=== PATIENT | male | born 1970 | race Caucasian/White ===

== ENCOUNTER → 2017-09-18 | Outpatient (CLI) | payer OTHER ==
[~2017-09-18] MED LIST: CLIN-80 PO; EPIN0.3P2 IM; GADOBUTROL 10 MMOL/10 ML (GADAVIST) VIAL IV ONE; OXYC-12 PO
--- NOTE | 2017-09-18 11:48 | Diagnostic Imaging Report ---
PROCEDURE: MR imaging of the brain with and without contrast. TECHNIQUE: Multiplanar, multisequence MR imaging of the brain was performed with and without contrast. INDICATION: Headaches and short-term memory loss. FINDINGS: Ventricular size and sulcal pattern are normal. There is some slightly prominent CSF density along the frontal convexities bilaterally, suggestive of mild frontal lobe atrophy. No diffusion restriction is identified to suggest acute ischemia. The normal expected flow-voids within the carotid siphons are seen. No acute intra-axial or extra-axial hemorrhage is detected. No abnormal enhancement is seen following contrast administration. The corpus callosum is unremarkable. The sella and parasellar structures are unremarkable. IMPRESSION: Findings suggestive of mild frontal lobe atrophy bilaterally. The study is otherwise unremarkable. No acute features detected. Dictated by: Dictated on workstation # [id number]
== END ==
LOC: RAD 10:05
PROVIDERS: ATTEND Nurse Practitioner Family
DX: R41.3 Other amnesia (principal); R51 Headache
CPT/HCPCS: 70553

== ENCOUNTER → 2018-09-28 | Outpatient (CLI) | payer OTHER ==
[~2018-09-28] MED LIST changes: -GADOBUTROL 10 MMOL/10 ML (GADAVIST) VIAL IV ONE
--- NOTE | 2018-09-28 15:03 | Diagnostic Imaging Report ---
PROCEDURE: CT right upper extremity without contrast. TECHNIQUE: Multiple contiguous axial images were obtained through the right upper extremity without the use of intravenous contrast. Sagittal and coronal reformations were then performed. Auto Exposure Controls were utilized during the CT exam to meet ALARA standards for radiation dose reduction. INDICATION: Fall in March 2018 with pain and swelling of the right posterior hand and upper wrist. COMPARISON: None. FINDINGS: There is prominence and mild deformity at the dorsal aspect of the second and third carpometacarpal joints, which may be due to degenerative change or remote trauma. No acute fracture is seen in the right hand. Alignment appears normal. No muscular atrophy is seen. There is no fluid collection or mass seen. There is mild soft tissue edema at the dorsal aspect of the carpus with fluid in the fourth extensor compartment tendon sheath. IMPRESSION: 1. Protuberance at the dorsal aspect of the second and third carpometacarpal joints, may be from degenerative change or remote trauma. No acute fracture is seen. 2. Mild dorsal soft tissue edema with tenosynovitis of the fourth extensor compartment. Dictated by: Dictated on workstation # [id number]
== END ==
LOC: RAD 13:34
PROVIDERS: ATTEND Nurse Practitioner
DX: S60.221S Contusion of right hand, sequela (principal); M65.841 Other synovitis and tenosynovitis, right hand; M25.431 Effusion, right wrist
CPT/HCPCS: 73200

== ENCOUNTER 2023-01-22 05:50 | Outpatient (CLI) | payer OTHER ==
[~2023-01-22] VITALS: Ht 182.9 cm; Wt 121.4 kg
[2023-01-22] MEDS ORDERED: OMEG100032 PO (11:25)
[2023-01-22] MEDS ORDERED: OMEP20TA56 PO (11:25)
[2023-01-22] MEDS ORDERED: SUCR1TAB PO (11:25)
[2023-01-22] MEDS ORDERED: MULT-593 PO (11:25)
[2023-01-27] MEDS ORDERED: BUPR-42 PO (12:48)
== END 2023-01-27 12:58 | disposition home or self-care (01) ==
LOC: PREOP 05:50
PROVIDERS: ATTEND Surgery
DX: Z01.818 Encounter for other preprocedural examination (principal)

== ENCOUNTER 2023-02-03 07:50 | Day surgery (SDC) | payer OTHER ==
[~2023-02-03] VITALS: Ht 182.9 cm; Wt 121.4 kg
[~2023-02-03 07:50] MED LIST changes: +BUPR-42 PO; +MULT-593 PO; +OMEG100032 PO; +OMEP20TA56 PO; +SUCR1TAB PO
[2023-02-03] MEDS ORDERED: LACTATED RINGERS 1,000 ML 1,000 ML IV STA ×2 (08:08→08:20)
[2023-02-03] MEDS ORDERED: HURRICAINE EXT TUBE (BENZOCAINE) XX PRN (08:15)
--- NOTE | 2023-02-03 08:41 | Progress Note-Pre Operative ---
Pre-Operative Progress Note Date of Available H&P: Jan 21, 2023 Date H&P Reviewed: Feb 03, 2023 Time H&P Reviewed: 08:35 History & Physical: H&P Reviewed, Patient Examed, No changes noted Pre-Operative Diagnosis: Rectal bleeding SWATI PATE DO Feb 03, 2023 08:40
[2023-02-03 09:04] VITALS: BP 189/118
[2023-02-03] MEDS ORDERED: MIDAZOLAM INJ 2 MG/2 ML VIAL ONE ×2 (09:49→09:50)
[2023-02-03] MEDS ORDERED: meTOprolol INJECTION 5 MG/5 ML VIAL ONE (09:58)
--- NOTE | 2023-02-03 10:07 | Anesthesia-General Post-Op ---
MAC Patient Condition Mental Status/LOC: Same as Preop Cardiovascular: Satisfactory Nausea/Vomiting: Absent Respiratory: Satisfactory Pain: Controlled Complications: Absent Post Op Complications Complications None Follow Up Care/Instructions Patient Instructions None needed. Anesthesiology Discharge Order Discharge Order Patient is doing well, no complaints, stable vital signs, no apparent adverse anesthesia problems. No complications reported per nursing. DUNIA GATES CRNA Feb 03, 2023 10:07
--- NOTE | 2023-02-03 10:08 | Progress Note-Post Operative ---
Post-Operative Progess Note Surgeon (s)/Graphic Pre Press Trades Worker (s) Surgeon SWATI PATE DO Graphic Pre Press Trades Worker: FARRUKH Coughlin Pre-Operative Diagnosis Rectal bleeding Post-Operative Diagnosis Polyps Diverticula Internal Hemorrhoids Procedure & Operative Findings Date of Procedure 02/03/23 Procedure Performed/Findings Colonoscopy with snare polypectomy PROCEDURE NOTE: After informed consent was obtained, the patient was brought to the endoscopy suite, placed in bed in left lateral decubitus position. He was administered IV sedation by the STRAINER TENDER who then monitored his vitals the entire time, heart rate, blood pressure and pulse ox and the scope was inserted. On the way in I noted some diverticula. I pushed all the way to about 140 cm and pushed into the cecum, took a picture of appendiceal orifice and noted the ileocecal valve. Then slowly withdrew the scope insufflating to look circumferentially at the mejia starting in the cecum, up the ascending colon to the hepatic flexure, then down the transverse colon to the splenic flexure, into the descending colon and then into the sigmoid. I found a larger polyp here and elected to remove it completely with the snare. Continued pulling back and in the rectum found two more polyps; which I also removed with hot snare. Finally in the rectal vault, I retroflexed the scope and saw another small polyp. I took a picture of the polyp and the internal hemorrhoids. The patient tolerated the procedure. He was recovered in endoscopy suite. Recommended for repeat colonoscopy in 3 years. Anesthesia Type IV sedation by STRAINER TENDER Estimated Blood Loss Estimated blood loss (mL): scant Specimens/Packing Specimens Removed Sigmoid polyp Two rectal polyps SWATI PATE DO Feb 03, 2023 10:08
--- NOTE | 2023-02-03 10:09 | Endoscopy Discharge Instruct ---
Endo Procedure/Findings Findings 1.: Polyp 2.: Diverticulosis 3.: Internal Hemorrhoids Discharge Instructions - Activity: You might feel a little sleepy until tomorrow. This is due to the medicine you received to relax you. Until tomorrow, you should: NOT drive a car, operate machinery or power tools. NOT drink any alcoholic beverages. NOT make any important decisions or sign importortant papers. Do not return to work until tomorrow, unless otherwise instructed. Resume previous activities tomorrow. Diet: Start by taking liquids. If you tolerate liquids, advance to solid food. 1.: Colonscopy in 3 years Notify Physician - If you experience excessive bleeding, unusual abdominal pain, fever, or chest pain, contact your doctor immediately. Follow-Up: Other Follow up in my office in one week SWATI PATE DO Feb 03, 2023 10:09
[2023-02-03 10:10] VITALS: BP 155/95
[2023-02-03 10:15] VITALS: BP 152/94
[2023-02-03 10:52] VITALS: BP 152/94
== END 2023-02-03 10:52 | disposition home or self-care (01) ==
LOC: ENDO 07:50
PROVIDERS: ATTEND Surgery
DX: K63.5 Polyp of colon (principal); K62.1 Rectal polyp; K57.30 Diverticulosis of large intestine without perforation or abscess without bleeding; K64.8 Other hemorrhoids; F17.210 Nicotine dependence, cigarettes, uncomplicated